=== PATIENT | female | born 1980 | race Caucasian/White ===

== ENCOUNTER 2022-08-23 21:31 | Outpatient (REF) | payer OTHER, SELFPAY ==
[2022-08-23 21:50] LABS: Abs Immature Grans 0.02 10^3/uL (0.0-0.06); Absolute Basophil Count 0.05 10^3/uL (0.0-0.2); Absolute Eosinophil Count 0.31 10^3/uL (0.0-0.7); Absolute Lymphocyte Count 2.49 10^3/uL (1.2-3.4); Absolute Monocyte Count 0.44 10^3/uL (0.1-0.8); Absolute Neutrophil Count 5.81 10^3/uL (1.2-6.7); Basophils % 0.5; Eosinophils % 3.4; HCT 37.9 % (36.0-46.0); HGB 13.1 g/dL (11.2-15.7); Immature Grans % 0.2; Lymphocytes % 27.3; MCHC 34.6 % (32.0-36.0); MCV 84 fL (80-95); MPV 12.8 fL (8.0-11.0); Monocytes % 4.8; Neutrophils % 63.8; Platelet Count 180 10^3/uL (130-400); RBC 4.52 10^6/uL (3.93-5.22); RDW 13.1 % (11.7-14.6); RDW-SD 39.8 fL; WBC 9.12 10^3/uL (4.4-10.8)
[2022-08-23 22:15] LABS: ALT 37 U/L (14-59); AST 29 U/L (15-37); Albumin 3.8 g/dL (3.4-5.0); Alkaline Phosphatase 65 U/L (46-116); Anion Gap 9.1 mmol/L (3-11); BUN 11 mg/dL (7-18); Bilirubin, Total 0.3 mg/dL (0.2-1.0); CO2 26.9 mmol/L (21.0-32.0); Calcium 8.9 mg/dL (8.5-10.1); Chloride 105 mmol/L (98-107); Estimated GFR 72.58 (mL/min/1.73m2); Glucose 116 mg/dL (74-106); Potassium 3.7 mmol/L (3.5-5.1); Sodium 141 mmol/L (136-145); Total Protein 7.4 g/dL (6.4-8.2)
[2022-08-23 22:26] LABS: LDH 325 U/L (81-234)
== END 2022-08-23 21:32 | disposition home or self-care (01) ==
LOC: NCHCN 21:31
PROVIDERS: Visit Provider Family Medicine
DX: Z00.00 Encounter for general adult medical examination without abnormal findings (principal); R63.5 Abnormal weight gain
CPT/HCPCS: 80053; 83615; 84443; 85025

== ENCOUNTER 2022-08-26 16:27 | Outpatient (REF) | payer OTHER, SELFPAY ==
[2022-08-26 22:08] LABS: HCG Qual (Serum) Negative
== END 2022-08-26 16:28 | disposition home or self-care (01) ==
LOC: NCHCN 16:27
PROVIDERS: Visit Provider Family Medicine
DX: Z00.00 Encounter for general adult medical examination without abnormal findings (principal); R63.5 Abnormal weight gain
CPT/HCPCS: 80053; 85027; 82728; 84703

== ENCOUNTER 2022-09-06 11:54 | Outpatient (REF) | payer SELFPAY ==
[2022-09-06 16:41] LABS: HCG Qual (Serum) Negative
== END 2022-09-06 11:55 | disposition home or self-care (01) ==
LOC: LBN 11:54
PROVIDERS: PCP Family Medicine; Visit Provider Pathology Blood Banking & Transfusion Medicine
DX: Z32.02 Encounter for pregnancy test, result negative (principal)
CPT/HCPCS: 84703

== ENCOUNTER 2024-08-23 17:52 | Outpatient (REF) | payer BC, SELFPAY | END 2024-08-23 17:53 | disposition home or self-care (01) | LOC: NCHCN 17:52 | PROVIDERS: PCP Family Medicine; Visit Provider Internal Medicine | DX: R30.0 Dysuria (principal); R82.89 Other abnormal findings on cytological and histological examination of urine | CPT/HCPCS: 87086 ==

== ENCOUNTER 2025-02-22 15:03 | Outpatient (REF) | payer BC, SELFPAY ==
[2025-02-22 15:30] LABS: TSH 4.65 uIU/mL (0.36-3.74)
== END 2025-02-22 15:04 | disposition home or self-care (01) ==
LOC: LBN 15:03
PROVIDERS: PCP Family Medicine
DX: E89.0 Postprocedural hypothyroidism (principal)
CPT/HCPCS: 84443

== ENCOUNTER 2025-04-29 14:27 | Outpatient (REF) | payer BC, SELFPAY ==
[2025-04-29 22:21] LABS: TSH 3.49 uIU/mL (0.55-4.78)
== END 2025-04-29 14:28 | disposition home or self-care (01) ==
LOC: LBN 14:27
PROVIDERS: PCP Family Medicine
DX: E89.0 Postprocedural hypothyroidism (principal); C73 Malignant neoplasm of thyroid gland
CPT/HCPCS: 84443